=== PATIENT | female | born 2000 | race Caucasian/White ===

== ENCOUNTER 2020-06-01 14:02 | Emergency (ER) | payer OTHER ==
[2020-06-01 14:34] VITALS: Ht 160 cm
[2020-06-01 16:38] VITALS: BP 115/70
== END 2020-06-01 16:38 | disposition home or self-care (01) ==
LOC: ED 14:02
DX: M54.5 Low back pain (principal); R30.0 Dysuria; Z11.3 Encounter for screening for infections with a predominantly sexual mode of transmission
CPT/HCPCS: 87491; 87591